=== PATIENT | female | born 1965 | race Caucasian/White ===

== ENCOUNTER 2017-10-10 07:03 | Day surgery (SDC) | payer BC ==
[~2017-10-10] VITALS: Ht 165.1 cm; Wt 109.8 kg
[2017-10-10 07:40] VITALS: BP 138/83; PULSE 74; TEMP 98.2
[2017-10-10] MEDS ORDERED: PRINZIDE 12.5 M1 TAB PO (07:51)
[2017-10-10] MEDS ORDERED: LIPITOR 10MG10 MG PO (07:51)
[2017-10-10] MEDS ORDERED: VOLTAREN 75 DR75 MG PO (07:52)
[2017-10-10] MEDS ORDERED: MULTI VITAMINS1 TAB PO (07:52)
[2017-10-10] MEDS ORDERED: PRIL40 PO (07:52)
[2017-10-10 08:50] VITALS: BP 119/74; PULSE 75; TEMP 97.6
[2017-10-10 09:05] VITALS: BP 113/85; PULSE 73
[2017-10-10 09:20] VITALS: BP 115/61; PULSE 75
[2017-10-10 09:35] VITALS: BP 120/69; PULSE 83
== END 2017-10-10 09:43 | disposition home or self-care (01) ==
LOC: SDCO 07:03
DX: Z12.11 Encounter for screening for malignant neoplasm of colon (principal); K92.1 Melena; K59.00 Constipation, unspecified; K76.0 Fatty (change of) liver, not elsewhere classified; D64.9 Anemia, unspecified; E78.00 Pure hypercholesterolemia, unspecified; I10 Essential (primary) hypertension; E66.01 Morbid (severe) obesity due to excess calories; Z88.5 Allergy status to narcotic agent; Z88.0 Allergy status to penicillin; Z83.71 Family history of colonic polyps
CPT/HCPCS: OP; J2250; J3010; J7030

== ENCOUNTER → 2018-06-29 | Outpatient (CLI) | payer BC ==
[~2018-06-29] MED LIST: LIPITOR 10MG10 MG PO; MULTI VITAMINS1 TAB PO; PRIL40 PO; PRINZIDE 12.5 M1 TAB PO; VOLTAREN 75 DR75 MG PO
== END ==
LOC: COL.RAD 09:51
DX: K44.9 Diaphragmatic hernia without obstruction or gangrene (principal); K21.0 Gastro-esophageal reflux disease with esophagitis

== ENCOUNTER 2018-07-28 10:27 | Day surgery (SDC) | payer BC ==
[~2018-07-28] VITALS: Ht 165.1 cm; Wt 112.6 kg
[2018-07-28] VITALS (11 sets, daily range): BP systolic 135–156; BP diastolic 60–80; PULSE 57–88; TEMP 98.1–98.9
[2018-07-28] MEDS ORDERED: PRINZIDE 25 MG-1 TAB PO (10:52)
[2018-07-28] MEDS ORDERED: BYSTOLIC5 MG PO (10:53)
[2018-07-28] MEDS ORDERED: VITAMIN D 1001000 IU PO (10:55)
[2018-07-28] MEDS ORDERED: CALCIUM CARBON650 M2 PO (10:55)
[2018-07-28] MEDS ORDERED: TURMERIC500 MG PO (10:56)
[2018-07-28] MEDS ORDERED: NATURAL GINKGO500 MG PO (10:57)
--- NOTE | 2018-07-28 15:42 | NUR ---
Patient to room 342 post Quyen fundoplication. See assessment. Abdomen soft, tender to touch. Lap sites x5 with edges well approximated, no drainage noted. Bowel sounds hypoactive, no flatus. Patient drowsy and prefers to sleep at this time. No other c/o at this time.
--- NOTE | 2018-07-28 20:25 | NUR ---
Patient rests in bed awake and alert and oriented x 4. Reports upper abdominal pain "feels like a fist" and percocet reviewed and given with pudding. Patient able to sit self up and rest self back in bed. SCD's reviewed and applied.
--- NOTE | 2018-07-28 21:45 | NUR ---
Patient rests in bed with eyes closed. Respirations with ease.
--- NOTE | 2018-07-29 01:00 | NUR ---
Patient rests in bed with eyes closed. Respirations with ease.
--- NOTE | 2018-07-29 02:39 | NUR ---
Patient rests on right side with eyes closed. Respirations with ease.
[2018-07-29 03:50] VITALS: BP 156/70; PULSE 64; TEMP 98
--- NOTE | 2018-07-29 04:36 | NUR ---
PATIENT AWAKE AND ALERT. PERCOCET GIVEN FOR PAIN ALONG WITH NO SODIUM BROTH AND PUDDING. STATES SLEPT WELL FOLLOWING PERCOCET GIVEN EARLIER. JUST RETURNED FROM THE BATHROOM. 6 LAP SITES ABDOMIN WELL APPROXIMATED/NO REDNESS OR DRAINAGE.
[2018-07-29 07:07] VITALS: BP 122/64; PULSE 62; TEMP 97.9
--- NOTE | 2018-07-29 08:00 | NUR ---
UPON ENTRY INTO ROOM PATIENT IS AMBULATING INDEPENDENTLY. PATIENT IS A&0X4. VSS. BOWEL SOUNDS ACTIVE ALL FOUR QUADRANTS. PATIENT TOLERATING FULL LIQUID DIET WITHOUT ANY COMPLAINTS OF N/V. 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 LEFT HAND TO INT. CALL LIGHT WITHIN REACH. NO OTHER NEEDS AT THIS TIME.
--- NOTE | 2018-07-29 11:59 | NUR ---
First visit from the sound truck operator. No needs right now.
[2018-07-29] MEDS ORDERED: PERCOCET 325 MG1 TA2 PO (12:03)
[2018-07-29 12:13] VITALS: BP 171/65; PULSE 81; TEMP 97.5
[2018-07-29] MEDS ORDERED: Work Release (12:49)
--- NOTE | 2018-07-29 14:47 | NUR ---
ANISHA met with the patient to discuss discharge plan. The patient lives in [place] with her , Chris. She reports independence with ADLs and does not use any DME. The patient's primary care provider is Jesse Polo PA-C and she receives her medications at the [facility] in [place]. She reports no difficulties obtaining her meds. The patient does not have advanced directives, but she was interested in obtaining a form for DPOA-HC and Living Will. ANISHA provided. The patient plans to return home with her upon discharge. No additional needs at this time.
--- NOTE | 2018-07-29 16:00 | NUR ---
PATIENT'S LEFT HAND INT DC'D PER PENDING DISCHARGE. PATIENT TOLERATED WELL. PATIENT GIVEN 1 TABLET OF PRN PERCOCET PRIOR TO DISCHARGE. DISCHARGE INSTRUCTIONS REVIEWED WITH PATIENT AND . ALL QUESTIONS ANSWERED. PATIENT AMBULATED WITH SURGICAL STAFF TO PERSONAL VEHICLE. PATIENT DISHCARGED.
== END 2018-07-29 16:00 | disposition home or self-care (01) ==
LOC: SDCO 10:27 → SURG 15:30 → SDCO 07-29 16:00
DX: K44.9 Diaphragmatic hernia without obstruction or gangrene (principal); K21.9 Gastro-esophageal reflux disease without esophagitis; Z88.0 Allergy status to penicillin; Z79.899 Other long term (current) drug therapy; I10 Essential (primary) hypertension; G56.01 Carpal tunnel syndrome, right upper limb; M19.90 Unspecified osteoarthritis, unspecified site; Z90.710 Acquired absence of both cervix and uterus
CPT/HCPCS: OP; J0690; J1100; J2250; J2405; J2704; J2765; J3010; J7120

== ENCOUNTER → 2019-06-21 | Outpatient (CLI) | payer BC ==
[~2019-06-21] MED LIST changes: +BYSTOLIC5 MG PO; +CALCIUM CARBON650 M2 PO; +NATURAL GINKGO500 MG PO; +PERCOCET 325 MG1 TA2 PO; +PRINZIDE 25 MG-1 TAB PO; +TURMERIC500 MG PO; +VITAMIN D 1001000 IU PO; +Work Release
== END ==
LOC: COL.RAD 12:48
DX: R14.0 Abdominal distension (gaseous) (principal); Z98.890 Other specified postprocedural states